=== PATIENT | male | born 1995 | race African-American/Black ===

== ENCOUNTER 2023-01-17 05:20 | Emergency (ER) | payer SELFPAY ==
[2023-01-17] VITALS (16 sets, daily range): BP systolic 118–130; BP diastolic 77–90; PULSE 71–90; RESP 13–30; O2SAT 96–100; BMI 26.1
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
--- NOTE | 2023-01-17 05:39 | PC.NURSE ---
[facility] transfer line called for transfer. Marker speaking with Dr at [facility] (Dr Stringer) Attempting to get transport to [facility] Multiple called all with ETAs of about 90min
[2023-01-17 05:51] LABS: Basophils Percent Auto 0.2 % (0.2-2.0); Eosinophils Percent Auto 0.1 % (0.9-7.0); Hematocrit 44.6 % (42.0-54.0); Hemoglobin 15.4 g/dL (14.0-18.0); Immature Granulocytes Abs Auto 0.04 10^3/uL (0.00-0.03); Immature Granulocytes Pct Auto 0.4 % (0.0-0.5); Lymphocytes Absolute Auto 2.5 10^3/uL (1.2-3.8); Lymphocytes Percent Auto 23.2 % (20.5-60.0); Mean Corpuscular HGB Conc 34.5 g/dL (29.9-35.2); Mean Corpuscular Hemoglobin 32.6 pg (25.9-34.0); Mean Corpuscular Volume 94.3 fL (80.0-94.0); Mean Platelet Volume 10.6 fL (9.5-13.5); Monocytes Absolute Auto 0.5 10^3/uL (0.3-0.8); Monocytes Percent Auto 4.5 % (1.7-12.0); Neutrophils Absolute Auto 7.7 10^3/uL (1.4-6.5); Neutrophils Percent Auto 71.6 % (43.0-75.0); Platelet Count 232 10^3/uL (150-450); Red Blood Count 4.73 10^6/uL (4.70-6.10); Red Cell Distribution Width 12.8 % (11.0-15.0); White Blood Count 10.8 10^3/uL (4.0-11.0)
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
[2023-01-17] MEDS: FENTANYL CITRATE/PF 100 MCG/2 ML VIAL 50 MCG IV ×3 (06:00→07:07)
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
[2023-01-17] MEDS: ONDANSETRON PF 4 MG/2 ML VIAL 1000 MG IV (06:09)
[2023-01-17] MEDS: 0.9 % SODIUM CHLORIDE 2,000 ML 2000 ML (06:12)
[2023-01-17] MEDS: FENTANYL CITRATE/PF 100 MCG/2 ML VIAL IV (06:23)
--- NOTE | 2023-01-17 06:36 | PC.NURSE ---
2L oxygen placed on pt for comfort
[2023-01-17] MEDS: METRONIDAZOLE/SODIUM CHLORIDE 500 MG/100 ML PREMIX 100 MG IV (06:39)
[2023-01-17 06:45] LABS: Alanine Aminotransferase 178 U/L (16-63); Albumin Globulin Ratio 1.4; Albumin Level 4.6 g/dL (3.4-5.0); Alkaline Phosphatase 57 U/L (46-116); Aspartate Amino Transferase 169 U/L (15-37); Bilirubin Direct 0.2 mg/dL (0.0-0.2); Bilirubin Total 0.8 mg/dL (0.2-1.0); Globulin 3.4 g/dL
[2023-01-17] MEDS: ADACEL DIPH,PERTUSS(ACELL),TET VAC/PF 0.5 ML ADULT SYRINGE IM (06:59)
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
--- NOTE | 2023-01-17 07:18 | PC.NURSE ---
Report given to ANN Camilo at [facility] at [phone]
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
--- NOTE | 2023-01-17 10:29 | ECG_ITS ---
The [facility] Test Date: 2023-01-17 Pat Name: MARIETTA MITCHELL Department: Room: - Gender: Male [employer]: : 1995 Requested By: Order Number: [id number] Reading MD: CHASITY BYNUM Measurements Intervals [place] Rate: 71 P: 32 UT: 128 QRS: 76 QRSD: 86 T: 46 QT: 390 QTc: 413 Interpretive Statements 1100 Sinus rhythm 2420 RSR (QR) in lead V1/V2, consistent with right ventricular conduction delay 9130 borderline ECG No previous ECG available for comparison Electronically Signed On 01-19-2023 19:35:46 EDT by CHASITY BYNUM
== END 2023-01-17 07:37 | disposition short-term general hospital (02) ==
PROVIDERS: Emergency Provider Emergency Medicine
DX: K66.8 Other specified disorders of peritoneum (principal); S31.139A Puncture wound of abdominal wall without foreign body, unspecified quadrant without penetration into peritoneal cavity, initial encounter; X95.9XXA Assault by unspecified firearm discharge, initial encounter; Z23 Encounter for immunization
CPT/HCPCS: 36415; 71045; 80076; 85025; 86850; 86900; 86901; 90471; 90715; 93005; 96374; 96375; 96376; 99291; 99292; P9016